=== PATIENT | female | born 1960 | race Caucasian/White ===

== ENCOUNTER 2016-09-08 19:52 | Emergency (ER) | payer OTHER ==
[~2016-09-08 19:52] MED LIST: AUGMENTIN 875875 MG PO; POLYTRIM O200 GTT/BO OPH
[2016-09-08] MEDS ORDERED: PREDNISONE20 M1 PO (20:18)
[2016-09-08] MEDS ORDERED: AMOXICILLIN875 M1 PO (20:18)
[2016-09-08] MEDS ORDERED: PROAIR HFA8.5 GM INH (20:18)
--- NOTE | 2016-09-08 20:18 | ED DYSPNEA/ASTHMA COMPLAINT ---
History of Present Illness General Chief Complaint: Wheezing/Asthma Stated Complaint: PT IS HAVING A PROBLEM BREATHING SPO 95 Source: patient, old records Exam Limitations: no limitations Vital Signs & Intake/Output Vital Signs & Intake/Output Vital Signs Date Time Temp Pulse Resp B/P B/P Pulse O2 O2 Flow FiO2 Mean Ox Delivery Rate 09/08 2037 97.3 92 18 136/69 97 Room Air 09/08 2021 93 09/08 2005 94 Room Air 09/08 1957 97.3 110 26 140/91 94 Room Air ED Intake and Output 09/09 0000 09/08 1200 Intake Total Output Total Balance Patient 225 lb Weight Allergies Coded Allergies: MDX - Aspirin (ASPIRIN) (TRIGGERS ASTHMA 11/06/11) MDX - Nsaid (Nsaid) ("LUNGS GET ALL SNOTTY" 11/06/11) Reconcile Medications Albuterol Sulfate (Proair Hfa) 90 MCG HFA.AER.AD 2-4 PUF INH Q4-6 PRN PRN shortness of breath Amoxicillin 875 MG TABLET 1 TAB PO BID bronchitis Amoxicillin/Clavulanate Potass (Amox-Clav 875-125 MG Tablet) 875 MG-125 MG TABLET 1 TAB PO BID CORNEAL ABRAISON Polytrim (Polytrim Eye Drops) 10,000 UNIT-1 MG/ML DROPS 1 GTT OPH Q6 CORNEAL ABRAISON Prednisone 20 MG TABLET 1 TAB PO BID asthma Triage Note: PER PT COUGH SINCE YESTERDAY TODAY FEELING SOB HX OF ASTHMA, COUGH CLEAR SECRETIONS LOW GRADE TEMP Triage Nurses Notes Reviewed? yes Onset: yesterday Duration: day(s):, constant, continues in ED Timing: recent history Severity: moderate Activities at Onset: none Prior Episodes/Possible Cause: illness exposure Modifying Factors: Improves With: rest. Worsens With: movement. Associated Symptoms: cough, fever, wheezing LMP (ages 10-50): post menopausal, hysterectomy : No Patient currently breastfeeds: No HPI: 1 day prior to admission patient complains of nasal congestion productive cough of mucoid sputum with increasing wheezing low-grade temperature. She denies chills chest pain nausea vomiting diarrhea abdominal pain headache dysuria rash bleeding. Past History Travel History Traveled to [place] past 21 day No Medical History Any Pertinent Medical History? see below for history Neurological: NONE EENT: NONE Cardiovascular: CHOL Respiratory: asthma Gastrointestinal: NONE Hepatic: NONE Renal: NONE Musculoskeletal: NONE Psychiatric: depression Endocrine: THYROID Tetanus Vaccine: 12/13/13 Surgical History Surgical History: non-contributory Psychosocial History Who do you live with Spouse Services at Home NONE What is your primary language Polish Tobacco Use: Current Daily Use Daily Tobacco Use Amount/Type: => 5 Cigarettes daily Family History Hx Contributory? No Review of Systems Review of Systems Constitutional: Reports: see HPI, fever. EENTM: Reports: no symptoms, nasal congestion. Respiratory: Reports: see HPI, cough, short of breath, sputum production, wheezing. Cardiovascular: Reports: no symptoms. GI: Reports: no symptoms. Genitourinary: Reports: no symptoms. Musculoskeletal: Reports: no symptoms. Skin: Reports: no symptoms. Neurological/Psychological: Reports: no symptoms. Hematologic/Endocrine: Reports: no symptoms. Immunologic/Allergic: Reports: no symptoms. All Other Systems: Reviewed and Negative Physical Exam Physical Exam General Appearance: well developed/nourished, alert, awake, anxious, mild distress, obese Head: atraumatic, normal appearance Eyes: Bilateral: normal appearance, PERRL, EOMI. Ears, Nose, Throat: normal pharynx, normal ENT inspection Neck: normal inspection, supple, full range of motion, no midline tenderness Respiratory: chest non-tender, quiet respiration, decreased breath sounds, wheezing Cardiovascular: regular rate/rhythm, normal peripheral pulses, norml femoral pulses equa Peripheral Pulses: 4+ carotid (R), 4+ carotid (L) Gastrointestinal: normal bowel sounds, soft, non-tender, no organomegaly Extremities: normal inspection, normal capillary refill, normal range of motion, no edema Neurologic/Psych: no motor/sensory deficits, awake, alert, oriented x 3, normal gait, normal mood/affect, lead military analyst II-XII nml as tested Skin: intact, normal color, warm/dry Lymphatic: no anterior cervical allan Core Measures ACS in differential dx? No Severe Sepsis Present: No Septic Shock Present: No Progress Differential Diagnosis: asthma, bronchitis, COPD, pneumonia Plan of Care: Current Medications Sig/Carine Start time Last Medication Dose Stop Time Status Admin Albuterol Sulfate 3 ML ONCE ONE 09/08 2014 UNVr (Proventil) 09/09 2015 Albuterol Sulfate 3 ML ONCE ONE 09/08 2014 UNVr (Proventil) 09/09 2015 Ipratropium Kinsman 2.5 ML ONCE ONE 09/08 2014 UNVr (Atrovent) 09/09 2015 Prednisone 60 MG ONCE ONE 09/08 2014 UNVr 09/08 (PREETHI WILSON MD) CXR Impression: no acute abnormality (declined cxr) Initial ED EKG: none Departure Departure Time of Disposition: 2017 Disposition: HOME OR SELF CARE Condition: Stable Clinical Impression Primary Impression: Asthma with acute exacerbation Qualifiers: Asthma severity: moderate persistent Qualified Code: J45.41 - Moderate persistent asthma with (acute) exacerbation Secondary Impressions: Bronchitis Referrals: TERI JACOBS,ESHA (PCP/Family) Departure Forms: Customer Survey General Discharge Information Prescriptions: Current Visit Scripts Amoxicillin 1 TAB PO BID #20 TAB Prednisone 1 TAB PO BID #10 TAB Albuterol Sulfate (Proair Hfa) 2-4 PUF INH Q4-6 PRN PRN shortness of breath #1 INHAL Ref 3 Critical Care Note Critical Care Note Critical Care Time: non-applicable
[2016-09-08 20:38] VITALS: BP 136/69
== END 2016-09-08 20:45 ==
LOC: ERH 19:52
DX: J45.901 Unspecified asthma with (acute) exacerbation (principal); Z72.0 Tobacco use
CPT/HCPCS: 1263